=== PATIENT | male | born 1980 | race Caucasian/White ===

== ENCOUNTER → 2017-12-20 | Day surgery (SDC) | payer OTHER ==
[~2017-12-20] MED LIST: LIDOCAINE 2% INJ 100 MG/5 ML SDV (FOR ANES.) As Ordered; NS 1,000 ML IV; PROPOFOL 200 MG/20 ML VIAL As Ordered
== END | disposition home or self-care (01) ==
LOC: M OPP 09:42
DX: K62.5 Hemorrhage of anus and rectum (principal); R19.4 Change in bowel habit; K58.2 Mixed irritable bowel syndrome; K64.0 First degree hemorrhoids; R12 Heartburn; K44.9 Diaphragmatic hernia without obstruction or gangrene; K21.9 Gastro-esophageal reflux disease without esophagitis; R51 Headache; Z79.899 Other long term (current) drug therapy
CPT/HCPCS: 45378

== ENCOUNTER → 2018-04-18 | Outpatient (CLI) | payer OTHER | LOC: M RAD 07:38 | DX: M25.562 Pain in left knee (principal) | CPT/HCPCS: 78315 ==

== ENCOUNTER 2018-07-15 07:38 | Day surgery (SDC) | payer OTHER ==
[2018-07-15] MEDS ORDERED: LR 1,000 ML IV ×2 (08:00→11:00)
[2018-07-15] MEDS ORDERED: SUCCINYLCHOLINE 100 MG/5 ML SYRINGE (J0330) As Ordered (08:42)
[2018-07-15] MEDS ORDERED: ONDANSETRON 4MG/2ML VIAL (J2405) As Ordered (08:42)
[2018-07-15] MEDS ORDERED: PROPOFOL 200 MG/20 ML VIAL As Ordered (08:42)
[2018-07-15] MEDS ORDERED: LIDOCAINE 2% INJ 100 MG/5 ML SDV (FOR ANES.) As Ordered (08:42)
[2018-07-15] MEDS ORDERED: fentaNYL 100 MCG/2 ML INJECTION (J3010) As Ordered ×2 (08:43→09:52)
[2018-07-15] MEDS ORDERED: MIDAZOLAM INJ 2 MG/2 ML VIAL (J2250) As Ordered (08:43)
[2018-07-15] MEDS ORDERED: dexameTHASONE 4 MG/ML 1ML VIAL (J1100) As Ordered (08:46)
[2018-07-15] MEDS ORDERED: METOCLOPRAMIDE INJ 10MG/2ML VIAL (J2765) As Ordered (08:46)
[2018-07-15] MEDS ORDERED: KETOROLAC 60 MG/2 ML VIAL (J1885) As Ordered (08:46)
[2018-07-15] MEDS: BUPIVACAINE HCL 0.5% 10 ML VIAL As Ordered (09:48)
[2018-07-15] MEDS: LIDOCAINE 1% MDV 20ML VIAL As Ordered (09:48)
[2018-07-15] MEDS ORDERED: GLYCOPYRROLATE INJ 0.2 MG/ML 2 ML VIAL As Ordered (09:52)
[2018-07-15] MEDS: HYDROcodone/APAP LIQUID 7.5-325MG 15ML UDC (LORTAB ELIXIR) PO (10:34)
[2018-07-15] MEDS ORDERED: HYDROcodone/APAP LIQUID 7.5-325MG 15ML UDC (LORTAB ELIXIR) As Ordered (10:44)
[2018-07-15] MEDS ORDERED: ONDANSETRON 4MG/2ML VIAL (J2405) IV (11:00)
[2018-07-15] MEDS ORDERED: NORCO, ANEXSIA 5/325MG TABLET (HYDROcodone/ACETAMINOPHEN) PO (11:00)
[2018-07-15] MEDS ORDERED: fentaNYL 100 MCG/2 ML INJECTION (J3010) IV (11:00)
== END 2018-07-15 11:36 | disposition home or self-care (01) ==
LOC: M SDC 11:36
DX: J35.01 Chronic tonsillitis (principal); K21.9 Gastro-esophageal reflux disease without esophagitis; M54.9 Dorsalgia, unspecified; Z79.899 Other long term (current) drug therapy
CPT/HCPCS: 42826

== ENCOUNTER → 2018-08-02 | Outpatient (CLI) | payer OTHER | LOC: M SMT 10:40 | DX: R06.02 Shortness of breath (principal) | CPT/HCPCS: 71046 ==

== ENCOUNTER → 2018-08-30 | Outpatient (CLI) | payer OTHER ==
[~2018-08-30] MED LIST changes: -LIDOCAINE 2% INJ 100 MG/5 ML SDV (FOR ANES.) As Ordered; +METHACHOLINE KIT (J7674) INH; -NS 1,000 ML IV; -PROPOFOL 200 MG/20 ML VIAL As Ordered
== END ==
LOC: M CARPUL 11:56
DX: R06.02 Shortness of breath (principal)
CPT/HCPCS: J7674